=== PATIENT | female | born 1975 ===

== ENCOUNTER → 2020-03-18 | Outpatient (CLI) | payer BC, OTHER | LOC: SJCVCIMAG 07:46 | DX: I37.1 Nonrheumatic pulmonary valve insufficiency (principal); I73.9 Peripheral vascular disease, unspecified; M79.604 Pain in right leg; M79.605 Pain in left leg; R00.1 Bradycardia, unspecified; Z82.49 Family history of ischemic heart disease and other diseases of the circulatory system ==